=== PATIENT | male | born 1995 | race Caucasian/White ===

== ENCOUNTER 2019-09-01 13:31 | Emergency (ER) | payer OTHER ==
--- NOTE | 2019-09-01 14:31 | RAD ---
Exam:3 views right wrist HISTORY: Fall. Pain. COMPARISON: None FINDINGS: Intercarpal and radiocarpal joint spaces are preserved. No fracture, cortical irregularity or periosteal reaction. IMPRESSION: No fracture.
== END 2019-09-01 15:45 | disposition home or self-care (01) ==
LOC: ERS 13:31
DX: L03.115 Cellulitis of right lower limb (principal); M10.9 Gout, unspecified